=== PATIENT | male | born 1935 | race Caucasian/White ===

== ENCOUNTER 2016-04-21 01:34 | Day surgery (SDC) | payer MEDICARE, OTHER ==
[~2016-04-21] VITALS: Ht 182.9 cm; Wt 77.0 kg
[~2016-04-21 01:34] MED LIST: AMLO5TAB2 PO; CYAN100T PO; ERGO2000 PO; FERR-83 PO; HYDR12.55 PO; SODI15OR2 PO
[2016-04-21 10:35] VITALS: BP 115/49; PULSE 92; RESP 18; O2SAT 99
[2016-04-21 10:38] LABS: BASOPHILS % (AUTO) 0.1 % (0-3); EOSINOPHILS % (AUTO) 0.5 % (0-5); Mean Corpuscular Hemoglobin 28.9 pg (27.0-35.0); Mean Corpuscular Volume 92.6 fL (81-100); NEUTROPHILS % (AUTO) 74.9 % (40-74); Platelet Count 264 bil/L (150-400)
[2016-04-21 10:55] LABS: INR 0.9 ratio
[2016-04-21] MEDS ORDERED: 0.9% Sodium Chloride 500 ML ONE (11:09)
[2016-04-21] MEDS ORDERED: CeFAZolin Inj 2 gm / 50mL D5W IV ONE (11:10)
[2016-04-21] MEDS ORDERED: 0.9% Sodium Chloride 1,000 ML ONE (12:50)
[2016-04-21] MEDS ORDERED: Heparin 1,000 Unit/mL 10 mL Inj ONE ×2 (12:50)
[2016-04-21] MEDS ORDERED: fentaNYL-PF 50 mCg/mL 2 mL Inj ONE (13:15)
[2016-04-21 14:00] VITALS: BP 117/53; PULSE 96; RESP 15
--- NOTE | 2016-04-21 14:10 | DRSVH ---
PROCEDURE: CV TUNNEL CATH PLCMNT 1. Sonographic guidance for venous access. 2. Conscious sedation for 38 minutes. 3. Right internal jugular vein tunneled hemodialysis catheter placement. 4. Fluoroscopic guidance for catheter placement. 5. Left internal jugular venography. INDICATIONS: ESRD TECHNIQUE: The indications, alternatives, benefits, risks, and complications of the procedure were e xplained to the patient and any family members present. Informed written consent was obtained and pl aced in the chart. The patient was brought to the angiography suite, and conscious sedation was admi nistered intravenously by [facility] staff, while continuous cardiorespiratory monitoring was pe rformed. Maximum sterile barrier technique was employed per standard protocol, including hand hygiene, cap, ma sk, sterile gown and gloves, and 2% chlorhexidine. Sterile ultrasound probe cover was also utilized. 1% lidocaine was used for local anaesthesia. Under sonographic guidance, the right internal jugular vein was accessed with a Micropuncture set. Due to difficulties advancing the wire centrally, contra st was injected through the micropuncture sheath for a right internal jugular venography. An 0.035J G lidewire was advanced into the vena cava with the aid of a Kumpe catheter, through which the Glidewir e was exchanged for an 035 J-wire. Subcutaneous tunnel was created within the right anterior chest wa ll, through which a 14.5 Slovak double lumen tunneled hemodialysis catheter was advanced. Following sequential venotomy tract dilation, the catheter was advanced through the peel-away sheath and the ti p was placed at the cavoatrial junction. Peel-away sheath was removed. Adequate flow was obtained t hrough both lumens of the catheter. The venotomy was closed with Vicryl, and the catheter was fasten ed to the sking with Ticron. Both lumens were flushed with heparinized saline. The patient tolerated the procedure without difficulty and was in stable condition at the conclusion of the procedure. COMPARISON: None. FINDINGS: The right internal jugular vein is patent by ultrasound. The inferior aspect of the right internal ju gular vein is tortuous by venography. Fluoroscopic imaging demonstrates tip of the catheter at the ca voatrial junction. IMPRESSION: Right internal jugular vein tunneled hemodialysis catheter placement using sonographic and fluoroscop ic guidance. Dictated by: Pako Connelly M.D. on 04/21/2016 at 14:07 Approved by: Pako Connelly M.D. on 04/21/2016 at 14:09
[2016-04-21 14:15] VITALS: BP 117/53; PULSE 96; RESP 15
[2016-04-21 14:30] VITALS: BP 116/55; PULSE 88; RESP 15
[2016-04-21 14:45] VITALS: BP 115/53; PULSE 90; RESP 15
[2016-04-21 15:00] VITALS: BP 115/53; PULSE 90; RESP 15
--- NOTE | 2016-04-21 15:02 | NUR ---
Discharge Pt discharged to home with , Pt VSS and WNL post tunnel cath insertion. Pt and pt stated verbal understanding of discharge instructions regarding use of home medications, signs of worsening condition and care of tunnel cath and follow up appointments. Pt and left with personal belongings, discharge paperwork, IV dc'd intact at approxmimately 1500.
[2016-06-09] MEDS ORDERED: CHOL500050 PO (11:02)
[2016-06-09] MEDS ORDERED: SODI650T PO (11:02)
== END 2016-04-21 23:59 | disposition home or self-care (01) ==
LOC: SOUO 01:34
PROVIDERS: ATTEND Radiology Diagnostic Radiology
DX: I12.0 Hypertensive chronic kidney disease with stage 5 chronic kidney disease or end stage renal disease (principal); N18.6 End stage renal disease; D63.1 Anemia in chronic kidney disease; N25.0 Renal osteodystrophy; Z87.891 Personal history of nicotine dependence
CPT/HCPCS: 36415; 36558; 77001; 80048; 85025; 85610; 85730; 99152; 99153; C1750; C1769; C1887; J1644; J2250; J3010; J7030; Q9967

== ENCOUNTER 2016-06-13 08:05 | Day surgery (SDC) | payer MEDICARE, OTHER ==
[~2016-06-13] VITALS: Ht 182.9 cm; Wt 64.4 kg
[2016-06-13] VITALS (11 sets, daily range): BP systolic 115–153; BP diastolic 40–68; PULSE 57–69; RESP 12–17; O2SAT 93–100
--- NOTE | 2016-06-13 07:06 | PCM.HPANE ---
Patient Data Date of Service: June 13, 2016 Surgeon Admitting Provider: Attending Provider:Americo Dc MD Primary Care Physician:Arnaldo Kim MD Other Provider:Smooth Casanova Anesthesia Reason for Visit End Stage Renal Failure Ht/WT & BMI Height (Feet): 6 Height (Inches): 0 Weight (Kilograms): 64.4 Body Mass Index 19.00 Allergies Coded Allergies: No Known Allergies (Unverified , 06/09/16) Past Anesthesia History Anesthesia History: Denies:: Anesthesia Reactions Diabetes History Hx Diabetes?: No MRSA MRSA: No Medications Hypertension Medication: No (on no meds currently per spouse) Home Meds Incl Beta George: No Discontinued Reported Medications Cholecalciferol (Vitamin D3) (Vitamin D3)50,000 Unit Mymbhzv99,000 Unit PO WEEKLY 06/09/16 Sodium Bicarbonate 650 Mg Tablet1,300 Mg PO TID 06/09/16 Ergocalciferol (Vitamin D2) (Vitamin D2)2,000 Unit Tablet2,000 Unit PO WEEKLY 04/20/16 Cyanocobalamin (Vitamin B-12) (Vitamin B-12)100 Mcg [id number] Mcg PO DAILY 04/20/16 Sodium Polystyrene Sulfonate (Kionex)15 Gm/60 Ml Oral.susp15 Gm PO 04/20/16 Hydrochlorothiazide 12.5 Mg Pfzmyo27.5 Mg PO DAILY 30 Days Ref 0 04/20/16 Ferrous Sulfate 325 Mg [id number] Mg PO DAILY 30 Days Ref 0 04/20/16 Amlodipine 5 Mg Tablet5 Mg PO DAILY Ref 0 04/20/16 History History of ENT Problems?: No HEENT History: Denies:: Abnormal Airway Cataracts Difficult Intubation Dysphagia Glaucoma Hearing Problem Sinus Problem TMJ Denture Type: None Teeth Condition: Within Normal Limits Hx of Heart Problems?: Yes Cardiovascular History: Positive for:: Hypertension Other Cardiac History: tunnel cath placed for dialysis 04/2016 Hx of Respiratory Problem?: No Respiratory History: Denies:: Asthma COPD Emphysema Oxygen Administration Use of C-PAP Machine Hx Neurologic Problems?: Yes Neurological History: Positive for:: Dementia ("mild") Denies:: CVA Multiple Sclerosis Parkinson's Disease Seizures Hx of GI Problems?: Yes Gastrointestinal History: Denies:: Cirrhosis Diverticulitis Gall Bladder Disease Gastroesphageal Reflux Gastrointestinal Bleeding Heartburn Hepatitis Hiatal Hernia Liver Disease Rectal Bleeding Hx of Problems?: Yes Genitourinary History: Positive for:: HX of Hemodialysis (CKD stage V - fistula creation current admission plan) Urinary Tract Infection (hx of ) HX of Peritoneal Dialysis: No Other Pertinent History: dialysis currently three times weekly , , mon hx of angiomyolipoma of kidney Skin History: Denies:: History Skin Disorders? Hx Musculoskeletal Problems?: No Musculoskeletal History: Denies:: Back Injury Fibromyalgia Musculoskeletal Trauma Hx of Psycho/Social Problems?: No Hx Surgeries?: Yes (cholecystectomy) Hx Any Other Health Problems?: Yes Other History: Denies:: Cancer Thyroid Disease History Blood Transfusions: Denies:: Blood Transfuse Reaction Blood Transfusions Hx Diabetes: No Hx Alcohol Use: YesAlcoholic Drinks Per Day: occasionalHx Substance Use: No Smoking Status: Former Smoker Have You Smoked inLast 12 mo: No Stop/Bang Treated for Sleep Apnea?: No Do You Have a CPAP Machine?: No S-Snoring: Do You Snore Loudly: No T-Tired: feel tired, fatigued: No O-Obsered: Observed not breath: No P-Blood Pressure: treated: No B- Body Mass Index > 35 kg/m2: No A- Age over 50: Yes N- Neck Large Circumference: No G- Gender Male: Yes DAE Total Score: 2 DAE Risk Assessment: Low Risk, <3 Yes Risk Assessment Category Category 1A: Patient has history of documented sleep apnea, and HAS NOT received any narcotic, sedative or anesthesia administration during this stay. Category 1B: Patient has history of documented sleep apnea, and HAS received any narcotic , sedative or anesthesia administration during this stay Category 2: Patient has SUSPECTED Obstructive Sleep Apnea, and HAS received any narcotic , sedative or anesthesia administration during this stay. Category 3: Patient has SUSPECTED Obstructive Sleep Apnea and HAS NOT received narcotic, sedative or anesthesia administration during this stay. Category 4: Outpatient in Procedural Areas with known sleep apnea or who screen positive for High Risk via the STOP/BANG questionnaire. Exam Exam General Appearance: Alert, Oriented X3, Cooperative, No Acute Distress HEENT/AIRWAY: MP 2 Lungs: Clear to Auscultation, Normal Air Movement Heart: Exam Unremarkable, Regular Rate/Rhythm, No Murmurs/Rubs/Gallops Plan Impression Patient chart reviewed, patient interviewed and anesthestic plan with risks, benefits, and alternatives discussed, and informed consent obtained. NPO per Anesth. Guidelines: Yes ASA Physical Status: ASA3 Severe Disease Anesthetic Plan: GA Bene/Risks/Altern/Consents: Yes HP Complete Prior to Induction: Yes Shaun Hicks DO June 13, 2016 07:06
[~2016-06-13 08:05] MED LIST changes: -AMLO5TAB2 PO; -CYAN100T PO; +CeFAZolin Inj 2 GM in IV Premix 1 EACH IV SCH; -ERGO2000 PO; -FERR-83 PO; -HYDR12.55 PO; +Lactated Ringer's 1,000 ML IV ONE; -SODI15OR2 PO
[2016-06-13] MEDS ORDERED: Propofol 10,000 mCg/mL 20 mL Inj ONE (08:06)
[2016-06-13] MEDS ORDERED: fentaNYL-PF 50 mCg/mL 2 mL Inj ONE (08:06)
[2016-06-13] MEDS ORDERED: Lactated Ringer's 1,000 ML IV ONE (09:13)
[2016-06-13] MEDS ORDERED: 0.9% Sodium Chloride 500 ML IV ONE (09:46)
[2016-06-13] MEDS ORDERED: Bupivacaine-MPF 0.5% 30 mL Inj INFILTRATE ONE (10:13)
[2016-06-13] MEDS ORDERED: Heparin 1,000 Unit/mL 10 mL Inj IRRIGATION ONE (10:13)
[2016-06-13] MEDS ORDERED: Papaverine 30 mg/mL 2 mL Inj IV ONE (10:55)
[2016-06-13] MEDS ORDERED: Lactated Ringer's 1,000 ML IV SCH (11:31)
[2016-06-13] MEDS ORDERED: Lactated Ringer's 500 ML IV PRN (11:31)
[2016-06-13] MEDS ORDERED: MetoCLOpramide 5 mg/mL 2 mL Inj IVPUSH PRN (11:35)
[2016-06-13] MEDS ORDERED: Phenylephrine 10,000 mCg/mL Inj IVPUSH PRN (11:35)
[2016-06-13] MEDS ORDERED: Ondansetron 2 mg/mL 2 mL Inj IVPUSH PRN (11:35)
[2016-06-13] MEDS ORDERED: HYDROcodone-APAP 5-325 mg Tablet PO PRN (11:35)
[2016-06-13] MEDS ORDERED: EPHEDrine Sulfate 50 mg/mL Inj IVPUSH PRN (11:35)
[2016-06-13] MEDS ORDERED: Dexamethasone 4 mg/mL Inj IVPUSH PRN (11:35)
[2016-06-13] MEDS ORDERED: fentaNYL-PF 50 mCg/mL 2 mL Inj IVPUSH PRN (11:35)
[2016-06-13] MEDS ORDERED: HYDROmorphone 1 mg/mL Inj IVPUSH PRN (11:35)
--- NOTE | 2016-06-13 12:01 | PCM.ANEP1 ---
Post Anesthesia Phase 1 PACU Phase 1 Assessment Date of Service: June 13, 2016 Vital Signs Vital Signs Date Time Temp Pulse Resp B/P Pulse Ox O2 Delivery O2 Flow Rate FiO2 06/13/16 11:53 37.0 59 13 115/40 98 Room Air 06/13/16 11:51 63 12 119/48 99 Room Air 06/13/16 11:45 36.9 58 13 123/49 100 Room Air 06/13/16 11:40 58 13 125/53 100 Simple Mask 8 06/13/16 11:35 58 13 131/49 100 Simple Mask 8 06/13/16 11:30 57 12 136/50 100 Simple Mask 8 06/13/16 11:25 60 12 145/51 100 Simple Mask 8 06/13/16 11:20 36.4 62 12 153/63 100 Simple Mask 8 06/13/16 09:00 36.1 69 17 151/68 99 Room Air Anesthetic Administered: GA Level of Alertness: Sleepy, easy to arouse MORALEZ's with Equal Strength: Yes Pain: No Nausea or Vomiting: No Oxygen Delivery: Simple Mask (6l) Lungs: Clear to Auscultation Complications: No Follow up Care: No Shaun Hicks DO June 13, 2016 12:01
--- NOTE | 2016-06-13 21:05 | OP ---
[address] [address] OPERATIVE REPORT PATIENT: CHEY DE ANDA : 1935 MR#: [id number] ADMIT: 06/13/2016 JOB ID: [id number] DATE OF SURGERY: 06/13/2016 PREOPERATIVE DIAGNOSIS(ES): End-stage renal failure. POSTOPERATIVE DIAGNOSIS(ES): End-stage renal failure. PROCEDURE: Right brachiocephalic arteriovenous fistula. SURGEON: Americo Dc MD. MECHANICAL APPLICATIONS ENGINEER: Kathy Zimmerman MD. INDICATIONS: An 80-year-old man who was started on dialysis prior to me seeing him. He had a duplex exam that showed very poor veins with the only vein that was adequate by duplex being his right upper arm basilic vein. He had no significant arterial disease in his upper extremities. After discussing options with the patient, it was elected to proceed with a right brachiobasilic AV fistula. FINDINGS: Today, on physical examination and in the OR after exposure, he had a very nice upper arm cephalic vein. I chose to use that, and at the conclusion of the procedure, he had an excellent thrill, a dilating vein, and an easily palpable right radial pulse. PROCEDURE: At the beginning and end of the operation, the SCOAP checklist was completed. An LMA anesthetic was induced. Using ChloraPrep, his right upper extremity was prepped and draped in the usual fashion. He received local anesthesia with 0.5% plain bupivacaine. He has very thin skin and an incision was designed in the antecubital fossa, and after making it, cautery was used to dissect down through the superficial fascia. The cephalic vein, which preoperatively was noted to be much better than his duplex exam and much better than what I saw in the office, was then exposed and it was elected to use that vein for the fistula. His brachial artery was then exposed. Crossing veins were divided between clips and it was controlled proximally and distally with vessel loops. The source of the cephalic vein was ligated with 3-0 silk suture mattress right where it bifurcated off of the median cubital vein. The vein was flushed with heparinized saline. The artery was opened longitudinally and flushed proximally and distally with heparinized saline. The anastomosis was completed with running 6-0 Prolene. [place] through the anastomosis, the vein was flushed with papaverine. After completing the anastomosis, the artery was first backflushed into the vein, followed by forward flushing in the vein and then forward flow to the hand with results as stated above. There was no bleeding from the anastomosis. The wound was closed with running subcutaneous 3-0 Vicryl, running subcuticular 5-0 Vicryl, and then Dermabond. The estimated blood loss was less than 10 cc. There were no apparent complications. The final sponge, needle and instrument counts were announced as correct and he was returned to the recovery room in stable condition. Critical assistance provided by Kathy Zimmerman MD [facility]WORK[facility]
== END 2016-06-13 23:59 | disposition home or self-care (01) ==
LOC: SAS 08:05
PROVIDERS: ATTEND Surgery
DX: I12.0 Hypertensive chronic kidney disease with stage 5 chronic kidney disease or end stage renal disease (principal); N18.6 End stage renal disease; D63.1 Anemia in chronic kidney disease; D17.71 Benign lipomatous neoplasm of kidney; E87.5 Hyperkalemia; Q78.9 Osteochondrodysplasia, unspecified; Z87.891 Personal history of nicotine dependence; Z99.2 Dependence on renal dialysis
CPT/HCPCS: 36415; 36818; 84132; J0690; J1644; J2250; J3010; J7030; J7120